=== PATIENT | female | born 1955 | race Caucasian/White ===

== ENCOUNTER 2018-02-01 17:42 | Emergency (ER) | payer OTHER, MEDICAID ==
[~2018-02-01] VITALS: Ht 154.9 cm; Wt 65.8 kg
[~2018-02-01 17:42] MED LIST: AMLO2.5T2 PO; BACL10TA PO; GABA-531 PO; LORA2TAB95 PO; LUBI8CAP PO; METHAMPHETAMINE PO; PRO20 PO; ROPI0.5T PO; SUMA20SP6 NS; TRAM50TA92 PO; TRAZ150T77 PO
[2018-02-01 18:00] VITALS: BP_SYST 139
--- NOTE | 2018-02-01 18:23 | NUR ---
Pt LWBS, told admission that she was leaving and did not want to wait
== END 2018-02-01 18:23 | disposition left against medical advice (07) ==
LOC: SED 17:42
DX: R55 Syncope and collapse (principal); M54.9 Dorsalgia, unspecified; Z53.21 Procedure and treatment not carried out due to patient leaving prior to being seen by health care provider

== ENCOUNTER 2019-10-15 13:49 | Emergency (ER) | payer OTHER, MEDICAID ==
[~2019-10-15] VITALS: Ht 157.5 cm; Wt 61.2 kg
[~2019-10-15 13:49] MED LIST changes: +AMLO1CAP6 PO; -AMLO2.5T2 PO; +LACO200T2 PO; -LUBI8CAP PO; +METH750T3 PO; -METHAMPHETAMINE PO; +MONT10TA25 PO; +PARO-41 PO; +PRED5TAB PO; -PRO20 PO; +ROSU10TA2 PO; -SUMA20SP6 NS; -TRAM50TA92 PO
[2019-10-15 13:50] VITALS: BP_SYST 152
--- NOTE | 2019-10-15 13:55 | NUR ---
Patient triaged and placed in waiting room. VSS and patient appears in no acute distress at this time. Accompanied by SELF, awaiting available bed, and MD notified of need for MSE.
--- NOTE | 2019-10-15 15:09 | NUR ---
DR WHEELER EVALUATING PT IN TRIAGE ROOM.
--- NOTE | 2019-10-15 15:55 | NUR ---
AFTER HAVING CT DONE, PT MOVED TO ROOM #5, REPORT GIVEN TO DOUG
--- NOTE | 2019-10-15 16:05 | NUR ---
Patient presented ER C/O mechanical fall. Patient ambulatory with cane, afebrile, skin pale and warm, denies N/V/D, pain 6/10, facial abrasion, and right arm skin tear. Patient states she tripped over the cat yesterday.
[2019-10-15 16:55] VITALS: BP_SYST 149
--- NOTE | 2019-10-15 16:55 | NUR ---
Patient given written and verbal discharge instructions and verbalizes understanding. ER MD discussed with patient the results and treatment provided. Patient in stable condition. ID arm band removed. No Rx given. Patient educated on pain management and to follow up with PMD. Pain Scale 6/10. Opportunity for questions provided and answered. Medication side effect fact sheet provided.
== END 2019-10-15 16:55 | disposition home or self-care (01) ==
LOC: SED 13:49
DX: S00.83XA Contusion of other part of head, initial encounter (principal); F15.90 Other stimulant use, unspecified, uncomplicated; F11.90 Opioid use, unspecified, uncomplicated; M54.6 Pain in thoracic spine; J44.9 Chronic obstructive pulmonary disease, unspecified; I10 Essential (primary) hypertension; Z86.19 Personal history of other infectious and parasitic diseases; Z79.899 Other long term (current) drug therapy; Z88.2 Allergy status to sulfonamides; Z91.011 Allergy to milk products; W01.0XXA Fall on same level from slipping, tripping and stumbling without subsequent striking against object, initial encounter; Y93.89 Activity, other specified; Y92.89 Other specified places as the place of occurrence of the external cause; Y99.8 Other external cause status
CPT/HCPCS: 70486-TC; 72128; 99285